=== PATIENT | male | born 1950 | race Caucasian/White ===

== ENCOUNTER 2017-01-08 06:19 | Day surgery (SDC) | payer OTHER ==
--- NOTE | 2017-01-07 10:41 | GHP ---
[f rep st] HISTORY AND PHYSICAL HISTORY OF PRESENT ILLNESS: The patient is a 66-year-old male who comes to our office for the second time to discuss placement of a peritoneal dialysis catheter for dialysis. The patient also has umbilical hernia. 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 He has hypertension. MEDICATIONS: Aspirin, Synthroid, lisinopril, labetalol, allopurinol, simvastatin. PAST MEDICAL HISTORY: Chronic kidney disease, anemia of chronic kidney disease , hypertension, hyperparathyroidism, gout, diabetes. PAST SURGICAL HISTORY: Knee arthroscopic surgery, rotator cuff repair, quadriceps repair, wrist fracture, vasectomy. ALLERGIES: Penicillin. REVIEW OF SYSTEMS: He has a negative 10-point review of systems. PHYSICAL EXAMINATION: GENERAL: The patient is a pleasant male in no apparent distress. HEAD AND NECK: Normocephalic, atraumatic. CHEST: CTA bilaterally. HEART: Regular rhythm and rate. ABDOMEN: Small umbilical hernia present. Abdomen is soft, nontender. EXTREMITIES: No lower extremity edema. IMPRESSION: 66-year-old male with need for peritoneal dialysis catheter placement, umbilical hernia repair. RECOMMENDATIONS: Both procedures were discussed with the patient in detail, including risk of recurrence in regard to the hernia, bowel injury, bleeding, infection, hematoma. Risks discussed with the peritoneal dialysis catheter include infection, dysfunction of catheter, hematoma, nerve injury, bowel injury. The patient elected to proceed with scheduling surgery for January 08, 2017. /[id number]/MODL MTDD
[2017-01-08] MEDS ORDERED: LIDOCAINE 1% 5 ML SDV ONE (07:40)
[2017-01-08] MEDS ORDERED: SKIN ADHESIVE (DERMABOND) 1 EACH TP ONE (07:40)
[2017-01-08] MEDS ORDERED: BUPIVACAINE 0.5% 30 ML SDV ONE (07:41)
[2017-01-08] MEDS ORDERED: CLINDAMYCIN 600 MG/DEXTROSE 50 ML IV ONE (08:00)
[2017-01-08] MEDS ORDERED: ONDANSETRON 4 MG/2 ML VIAL ONE (08:10)
[2017-01-08] MEDS ORDERED: fentaNYL 250 MCG/5 ML INJ ONE (08:10)
[2017-01-08] MEDS ORDERED: PROPOFOL 200 MG/20 ML VIAL ONE (08:10)
[2017-01-08] MEDS ORDERED: DEXAMETHASONE 4 MG/ML VIAL ONE (08:12)
[2017-01-08] MEDS ORDERED: CISATRACURIUM BESYLATE 20 MG/10 ML VIAL IV ONE (08:45)
[2017-01-08] MEDS ORDERED: MIDAZOLAM 2 MG/2 ML VIAL ONE (08:57)
[2017-01-08] MEDS ORDERED: SUGAMMADEX SODIUM 200 MG/2 ML VIAL IVP ONE ×2 (09:40→10:07)
[2017-01-08] MEDS ORDERED: epHEDrine SULFATE 10 MG/ML SYR ONE (09:51)
[2017-01-08] MEDS ORDERED: NEOSTIGMINE METHYLSULFATE 5 MG/5 ML SYR ONE (10:18)
[2017-01-08] MEDS ORDERED: GLYCOPYRROLATE 0.2 MG/1 ML VIAL ONE (10:19)
[2017-01-08] MEDS ORDERED: hydrALAZINE 20 MG/ML VIAL ONE (10:25)
--- NOTE | 2017-01-08 12:20 | GOP ---
[f rep st] OPERATIVE REPORT DATE OF OPERATION: 01/08/2017 SURGEON: Alejandro Prado MD OUTSIDE PRODUCTION INSPECTOR: NOREEN Jurado ANESTHESIOLOGIST: Dr. Styles PREOPERATIVE DIAGNOSIS: Chronic renal failure and umbilical hernia. POSTOPERATIVE DIAGNOSIS: Chronic renal failure and umbilical hernia. PROCEDURE PERFORMED: Open umbilical hernia repair and laparoscopic placement of a peritoneal dialysi s catheter. FINDINGS: The patient was found to have good flow and function of the PD catheter. He was also foun d to have a 1.5 cm umbilical defect. DESCRIPTION OF PROCEDURE: Patient taken to the operating room, where he received a satisfactory gene ral endotracheal anesthesia by Dr. Styles, placed in the supine position, and prepped and draped in th e usual sterile fashion. Infraumbilical incision was made and dissection carried down to the fascia. The umbilical hernia was dissected off the back of the umbilical skin. A Veress needle was inserted through the small umbili khadijah defect. A pneumoperitoneum was established. A 5 mm trocar was introduced. Laparoscope introduc ed. Good visualization was obtained. A second incision was made lateral to the umbilicus on the left side. Dissection extended down to th e rectus sheath. A 10 mm trocar was introduced into the abdomen under direct vision and through that , the PD catheter was passed and placed in the depths of the pelvis. The catheter was secured in hannah ce with 0 Vicryl sutures, securing the anterior rectus sheath over the Dacron pledget and then the en d of the catheter was tunneled out through a separate stab incision in the left lower quadrant. The abdomen was then instilled with 400 cc of saline and 250 cc were eventually returned. Both wounds were closed with 3-0 Vicryl for the subcutaneous tissue, 4-0 Monocryl subcuticular stitch , and they were both infiltrated with 0.5% Marcaine. The wounds were dressed. He tolerated the procedure well, taken to the recovery room in good condition. Blood loss was less t corea 5 cc. No complications. /[id number]/MODL
== END 2017-01-08 12:45 | disposition home or self-care (01) ==
LOC: FSGY 06:19
PROVIDERS: ATTEND Surgery
PROC: 0WQF0ZZ Repair Abdominal Wall, Open Approach (ICD-10-PCS; principal; 2017-01-08 08:00)
PROC: 0WHG43Z Insertion of Infusion Device into Peritoneal Cavity, Percutaneous Endoscopic Approach (ICD-10-PCS; principal; 2017-01-08 08:00)
PROC: 0T9B70Z Drainage of Bladder with Drainage Device, Via Natural or Artificial Opening (ICD-10-PCS; principal; 2017-01-08 08:00)
DX: Z49.02 Encounter for fitting and adjustment of peritoneal dialysis catheter (principal); K42.9 Umbilical hernia without obstruction or gangrene; N18.9 Chronic kidney disease, unspecified; D63.1 Anemia in chronic kidney disease; Q60.0 Renal agenesis, unilateral; M10.9 Gout, unspecified; I10 Essential (primary) hypertension; E21.3 Hyperparathyroidism, unspecified; Z88.0 Allergy status to penicillin; R33.9 Retention of urine, unspecified; K91.89 Other postprocedural complications and disorders of digestive system; Z87.891 Personal history of nicotine dependence; Z85.818 Personal history of malignant neoplasm of other sites of lip, oral cavity, and pharynx; Z79.82 Long term (current) use of aspirin
CPT/HCPCS: C1750; J0360; J1100; J2250; J2405; J2704; J2710; J3010

== ENCOUNTER 2017-01-08 19:47 | Emergency (ER) | payer OTHER ==
--- NOTE | 2017-01-08 20:01 | EDPHY ---
H & P Time Seen by Provider: 01/08/17 20:01 - Personal History Tetanus Vaccine Date: unknown - Medical/Surgical History Hx Asthma: No Hx Chronic Respiratory Disease: No Hx Diabetes: No Hx Cardiac Disease: No Hx Renal Disease: Yes Hx Cirrhosis: No Hx Alcoholism: No Hx HIV/AIDS: No Hx Splenectomy or Spleen Trauma: No Other PMH: Chronic kidney disease, HTN, high cholesterol, left rotator cuff repair, left knee ligament surgery, neck node removal, throat cancer with chemo and radiation, right knee surgery, right wrist surgery - Social History Smoking Status: Former smoker Constitutional: Initial Vital Signs Temperature (C) 36.4 C 01/08/17 20:08 Heart Rate 67 01/08/17 20:08 Respiratory Rate 18 01/08/17 20:08 Blood Pressure 153/88 H 01/08/17 20:08 O2 Sat (%) 97 01/08/17 20:08 O2 Delivery Mode Room Air Allergies/Adverse Reactions: Penicillins Allergy (Severe, Verified 01/08/17 20:10) Swelling/neck,face,throat Home Medications: Medication Instructions Recorded Aspirin [Aspirin 81mg (OTC)] 02/21/13 Bumetanide [Bumex (RX)] 02/21/13 Labetalol HCl [Trandate 200 mg 02/21/13 (RX)] Levothyroxine [Synthroid 125 mcg 02/21/13 (RX)] Lisinopril [Zestril 20 mg (RX)] 02/21/13 Minoxidil [Minoxidil 10 mg (RX)] 02/21/13 Niacin ER [Niaspan 1000 mg (RX)] 02/21/13 Simvastatin [Zocor 20 mg (RX)] 02/21/13 Allopurinol 01/03/17 IRON 01/03/17 Vit D3 & K/Berberine HCl/Hops 01/03/17 Medical Decision Making ED Course/Re-evaluation: CHIEF COMPLAINT: Urinary retention HISTORY OF PRESENT ILLNESS: This patient is a 66 year old male status post- umbilical surgery repair today who presents to the Emergency Department complaining of urinary retention since the procedure. He complains of lower abdominal pain and pressure suggestive of urinary retention. He has no additional concerns. He denies fever or chills, abdominal or bowel complaints. Medical history includes chronic kidney disease. REVIEW OF SYSTEMS: A 10 point review of systems was performed and is negative with the exception of the elements mentioned in the history of present illness. PHYSICAL EXAM: General Appearance: Alert, well hydrated, appropriate, and non-toxic appearing. Head: Atraumatic without scalp tenderness or obvious injury Eyes: Pupils equal, round, reactive to light and accommodation, EOMI, no trauma , no injection. Ears: Clear bilaterally, no perforation, normal landmarks Nose: Atraumatic, no rhinorrhea, clear. Throat: There is no erythema or exudates, no lesions, normal tonsils, mucus membranes moist. Neck: Supple, 2+ carotid upstroke, nontender, no lymphadenopathy. Respiratory: No retractions, no distress, no wheezes, and no accessory muscle use. Lungs are clear to auscultation bilaterally. Cardiovascular: Regular rate and rhythm, no murmurs, rubs, or gallops. Bilateral carotid, radial, dorsalis pedis, and posterior tibial pulses intact. Good capillary refill all extremities. Gastrointestinal: Abdomen is soft, nontender, non-distended, no masses, no rebound, no guarding, no peritoneal signs. Musculoskeletal: Normal active ROM of all extremities, atraumatic. Neurological: Alert, appropriate, and interactive. The patient has normal DTRs and non-focal cranial nerves, motor, sensory, and cerebellar exam. Skin: No rashes, good turgor, no nodules on palpation. Past medical history: CKD. Past surgical history: As above. Family history: Non-contributory. Social history: at bedside. DIFFERENTIAL DIAGNOSIS: Differential diagnosis for the patient's urinary retention includes but is not limited to post-operative urinary retention, exacerbation of chronic kidney disease, or obstruction. MEDICAL DECISION MAKING: This 66 year old male presents with urinary retention following hernia repair by Dr. Prado this morning. Ultrasound at bedside indicates a full bladder confirming suspicion of post-operative urinary retention secondary to anesthesia. I discussed these results with the patient. Hinojosa catheter was established with 800cc urine output upon time of discharge. The patient was discharged home with catheter in place with instructions to follow-up in two days with Dr. Prado. Departure - Departure Disposition: Home, Routine, Self-Care Clinical Impression: Postoperative urinary retention Condition: Good Instructions: Hinojosa Catheter Placement and Care (ED) Additional Instructions: 1. Follow-up with Dr. Prado in 2 days. Keep your Hinojosa catheter in place until that time. 2. Return to the Emergency Department if you experience pain at the cite of your catheter placement, blood or foul discharge in your catheter, fever or chills, or other serious concerns. Referrals: FELIX WILLIAMSON [Primary Care Provider] - As per Instructions Alejandro Prado MD [Medical Doctor] - As per Instructions
[2017-01-08] MEDS ORDERED: LIDOCAINE 2% JELLY 20 ML (UROJECT) ONE (20:12)
[2017-01-08 20:21] VITALS: PULSE 67
[2017-01-08 20:51] VITALS: BP 197/112; RESP 20; TEMP 98.8; O2SAT 94
== END 2017-01-08 20:53 | disposition home or self-care (01) ==
PROC: 0T9B70Z Drainage of Bladder with Drainage Device, Via Natural or Artificial Opening (ICD-10-PCS; principal; 2017-01-08)
DX: R33.9 Retention of urine, unspecified (principal); K91.89 Other postprocedural complications and disorders of digestive system; I10 Essential (primary) hypertension; Z87.891 Personal history of nicotine dependence; Z85.818 Personal history of malignant neoplasm of other sites of lip, oral cavity, and pharynx; Z79.82 Long term (current) use of aspirin

== ENCOUNTER → 2017-01-30 | Outpatient (CLI) | payer OTHER | LOC: FIMAGING 12:19 → EDSTATUS 12:21 | DX: M50.322 Other cervical disc degeneration at C5-C6 level (principal); M43.22 Fusion of spine, cervical region ==

== ENCOUNTER 2018-08-21 00:07 | Observation (INO) | payer OTHER ==
--- NOTE | 2018-08-21 00:32 | EDPHY ---
H & P Stated Complaint: Chest tightness Time Seen by Provider: 08/21/18 00:27 HPI/ROS: Chief Complaint: Chest tightness HPI: 68-year-old male began having chest tightness about 8:10 a.m. This evening. At worst is about a 2/10. He is also having aching in his arms. Does have a history of coronary calcifications, renal failure status post renal transplant 9 months ago. No fevers or chills. Pain is nonexertional. Is currently 1/10. No fevers or chills. No shortness of breath. No cough. No nausea vomiting or diarrhea. Also has a history of hyperlipidemia. ROS: 10 systems were reviewed and were negative except those elements noted in the HPI. PMH: Coronary artery calcifications, end-stage renal disease status post renal transplant, hyperlipidemia Social History: No smoking, occasional alcohol, no recreational drug use Family History: non-contributory Physical Exam: Gen: Awake, Alert, No Distress HEENT: Nose: no rhinorrhea Eyes: PERRLA, EOMI Mouth: Moist mucosa Neck: Supple, no JVD Chest: nontender, lungs clear to auscultation Heart: S1, S2 normal, no murmur Abd: Soft, non-tender, no guarding Back: no CVA tenderness, no midline tenderness Ext: no edema, non-tender Skin: no rash Neuro: CN II-XII intact, Sensation grossly intact, Strength 5/5 in bilateral upper and lower extremities - Personal History Current Tetanus/Diphtheria Vaccine: Yes Current Tetanus Diphtheria and Acellular Pertussis (TDAP): Yes Tetanus Vaccine Date: unknown - Medical/Surgical History Hx Asthma: No Hx Chronic Respiratory Disease: No Hx Diabetes: No Hx Cardiac Disease: No Hx Renal Disease: Yes Hx Cirrhosis: No Hx Alcoholism: Yes Hx HIV/AIDS: No Hx Splenectomy or Spleen Trauma: No Other PMH: Chronic kidney disease, HTN, high cholesterol, left rotator cuff repair, left knee ligament surgery, neck node removal, throat cancer with chemo and radiation, right knee surgery, right wrist surgery - Social History Smoking Status: Former smoker Constitutional: Initial Vital Signs Temperature (C) 36.4 C 08/21/18 00:11 Heart Rate 96 08/21/18 00:11 Respiratory Rate 18 08/21/18 00:11 Blood Pressure 123/91 H 08/21/18 00:11 O2 Sat (%) 94 09/20/18 00:11 O2 Delivery Mode Nasal Cannula O2 (L/minute) 2 Allergies/Adverse Reactions: Penicillins Allergy (Severe, Verified 08/21/18 00:09) Swelling/neck,face,throat levofloxacin [From Levaquin] Allergy (Verified 08/21/18 00:10) Home Medications: Medication Instructions Recorded Allopurinol 08/21/18 Aspirin 81mg (*) 08/21/18 Atorvastatin Calcium 08/21/18 Carvedilol 08/21/18 Glipizide 08/21/18 K Phos 08/21/18 Minoxidil 08/21/18 Mycophenolate Mofetil 08/21/18 Prednisone 08/21/18 Synthroid 08/21/18 Tacrolimus Anhydrous 08/21/18 Medical Decision Making - Diagnostics EKG Interpretation: ECG time 12:21 a.m., atrial fibrillation with a rate of 125, there are ST depressions in V5 and V6 and lead to. Mild elevation in AVR with some morphology that is concerning in V1 and V2. ED Course/Re-evaluation: I have discussed the patient with Dr. Barger, cardiology. He has reviewed the patient's ECG. He does not believe the patient is having a STEMI at this time. Changes are concerning for ischemia. He is requesting 5 mg of metoprolol IV. Admit the patient to the hospitalist for further evaluation likely EMIL and cardioversion in the morning. A at Dr. Barger request I have also discussed with Dr. Cai, cardiology. He will plan on consulting on the patient in the morning. Case discussed with Dr. Gordon, hospitalist. He will admit the patient to his service. Patient after 5 mg of Lopressor is now converted to a sinus rhythm with a rate of 64. Awaiting bed placement. - Data Points Laboratory Results: Laboratory Results 08/21/18 00:28 08/21/18 00:28 08/21/18 08/21/18 08/21/18 00:28 00:28 00:28 WBC 6.77 10^3/uL 10^3/uL (3.80-9.50) RBC 5.23 10^6/uL 10^6/uL (4.40-6.38) Hgb 15.9 g/dL g/dL (13.7-17.5) Hct 47.4 % % (40.0-51.0) MCV 90.6 fL fL (81.5-99.8) MCH 30.4 pg pg (27.9-34.1) MCHC 33.5 g/dL g/dL (32.4-36.7) RDW 13.5 % % (11.5-15.2) Plt Count 191 10^3/uL 10^3/uL (150-400) MPV 10.7 fL fL (8.7-11.7) Neut % (Auto) 67.1 % % (39.3-74.2) Lymph % (Auto) 17.7 % % (15.0-45.0) Sawyer % (Auto) 12.1 % % (4.5-13.0) Eos % (Auto) 1.5 % % (0.6-7.6) Baso % (Auto) 1.2 % % (0.3-1.7) Nucleat RBC Rel Count 0.0 % % (0.0-0.2) Absolute Neuts (auto) 4.54 10^3/uL 10^3/uL (1.70-6.50) Absolute Lymphs (auto) 1.20 10^3/uL 10^3/uL (1.00-3.00) Absolute Monos (auto) 0.82 10^3/uL H 10^3/uL (0.30-0.80) Absolute Eos (auto) 0.10 10^3/uL 10^3/uL (0.03-0.40) Absolute Basos (auto) 0.08 10^3/uL 10^3/uL (0.02-0.10) Absolute Nucleated RBC 0.00 10^3/uL 10^3/uL (0-0.01) Immature Gran % 0.4 % % (0.0-1.1) Immature Gran # 0.03 10^3/uL 10^3/uL (0.00-0.10) Sodium 141 mEq/L mEq/L (135-145) Potassium 4.1 mEq/L mEq/L (3.3-5.0) Chloride 107 mEq/L mEq/L (97-110) Carbon Dioxide 25 mEq/l mEq/l (22-31) Anion Gap 9 mEq/L mEq/L (8-16) BUN 25 mg/dL H mg/dL (7-23) Creatinine 0.9 mg/dL mg/dL (0.7-1.3) Estimated GFR > 60 Glucose 161 mg/dL H mg/dL (70-100) Calcium 10.4 mg/dL mg/dL (8.5-10.4) POC Troponin I 0.04 ng/mL ng/mL (0.00-0.08) Medications Given: Discontinued Medications Aspirin Buffered (Aspirin Ec) 243 mg PO EDNOW ONE Stop: 08/21/18 00:36 Last Admin: 08/21/18 00:43 Dose: 243 mg Metoprolol Tartrate (Lopressor Injection) 5 mg IVP EDNOW ONE Stop: 08/21/18 01:06 Last Admin: 08/21/18 01:05 Dose: 5 mg Point of Care Test Results: Chemistry 08/21/18 00:28 POC Troponin I 0.04 ng/mL ng/mL (0.00-0.08) Departure - Departure Disposition: [facility] Inpatient Acute Clinical Impression: Atrial fibrillation, Chest pain Condition: Fair Referrals: Thea Norton MD [Primary Care Provider] - As per Instructions
[2018-08-21] MEDS ORDERED: ASPIRIN 81 MG CHEWABLE TAB ONE (00:34)
[2018-08-21] MEDS ORDERED: ASPIRIN EC 325 MG TAB PO ONE ×2 (00:35→10:22)
[2018-08-21 00:48] LABS: PLATELET COUNT 191 10^3/uL (150-400)
[2018-08-21] MEDS ORDERED: METOPROLOL TARTRATE 5 MG/5 ML INJ ONE (01:02)
[2018-08-21] MEDS ORDERED: METOPROLOL TARTRATE 5 MG/5 ML INJ IVP ONE (01:05)
[2018-08-21] MEDS ORDERED: ACETAMINOPHEN 325 MG TAB PO PRN (01:36)
[2018-08-21] MEDS ORDERED: ONDANSETRON DISINTEGRATING 4 MG TAB PO PRN (01:36)
[2018-08-21] MEDS ORDERED: ONDANSETRON 4 MG/2 ML VIAL IVP PRN (01:36)
[2018-08-21] MEDS ORDERED: D50W 25 GM/50 ML SYR IVP PRN (01:41)
--- NOTE | 2018-08-21 02:32 | PDGENHP ---
History and Physical - Chief Complaint Chest pain - History of Present Illness 68 yo w/ hx of ESRD s/p renal transplant, DM, and CAD presents with chest pain. Patient experienced some chest tightness this evening that was associated with bilateral arm numbness. He check his vitals and noted that his HR was >100 so he decided to come to the ED. Upon arrival in the ED he was noted to be in AF w / RVR. He received one dose of metoprolol 5 mg IV x1 and converted to sinus rhythm shortly thereafter. At the time of my evaluation patient is comfortable and without complaints. His ECG (while tachycardic) shows signs concerning for ischemia. He has known CAD from a coronary CT but has never had an acute coronary syndrome or cardiac intervention in the past. Case discussed with ED physician Dr. Schofield, records reviewed in EMR and [place]. History Information - Allergies/Home Medication List Allergies/Adverse Reactions: Penicillins Allergy (Severe, Verified 08/21/18 00:09) Swelling/neck,face,throat levofloxacin [From Levaquin] Allergy (Verified 08/21/18 00:10) Home Medications: Allopurinol 08/21/18 [Last Taken Unknown] Aspirin 81mg (*) 08/21/18 [Last Taken Unknown] Atorvastatin Calcium 08/21/18 [Last Taken Unknown] Carvedilol 08/21/18 [Last Taken Unknown] Glipizide 08/21/18 [Last Taken Unknown] K Phos 08/21/18 [Last Taken Unknown] Minoxidil 08/21/18 [Last Taken Unknown] Mycophenolate Mofetil 08/21/18 [Last Taken Unknown] Prednisone 08/21/18 [Last Taken Unknown] Synthroid 08/21/18 [Last Taken Unknown] Tacrolimus Anhydrous 08/21/18 [Last Taken Unknown] I have personally reviewed and updated: family history, medical history - Past Medical History coronary artery disease, diabetes type 2, hypertension Additional medical history: CKD s/p renal transplant - Surgical History Reports: hernia repair Additional surgical history: Renal transplant - Family History Positive for: CAD Additional family history: COPD - Social History Smoking Status: Former smoker Review of Systems Review of Systems: ROS: 10pt was reviewed & negative except for what was stated in HPI & below Physical Exam Physical Exam: Temp Pulse Resp BP Pulse Ox 36.4 C 63 16 109/72 94 08/21/18 02:15 08/21/18 02:15 08/21/18 02:15 08/21/18 02:15 08/21/18 02:15 O2 (L/minute) 2 Constitutional: no apparent distress, not in pain Eyes: PERRL, EOMI Ears, Nose, Mouth, Throat: moist mucous membranes, no oral mucosal ulcers Cardiovascular: regular rate and rhythym, no murmur, rub, or gallop Respiratory: no respiratory distress, clear to auscultation Gastrointestinal: normoactive bowel sounds, soft, non-tender abdomen Skin: warm, normal color Musculoskeletal: full muscle strength, no muscle tenderness Neurologic: AAOx3, CN II-XII Intact Psychiatric: interacting appropriately, not anxious Lab Data & Imaging Review 08/21/18 00:28 08/21/18 00:28 WBC 6.77 10^3/uL (3.80-9.50) 08/21/18 00:28 RBC 5.23 10^6/uL (4.40-6.38) 08/21/18 00:28 Hgb 15.9 g/dL (13.7-17.5) 08/21/18 00:28 Hct 47.4 % (40.0-51.0) 08/21/18 00:28 MCV 90.6 fL (81.5-99.8) 08/21/18 00:28 MCH 30.4 pg (27.9-34.1) 08/21/18 00:28 MCHC 33.5 g/dL (32.4-36.7) 08/21/18 00:28 RDW 13.5 % (11.5-15.2) 08/21/18 00:28 Plt Count 191 10^3/uL (150-400) 08/21/18 00:28 MPV 10.7 fL (8.7-11.7) 08/21/18 00:28 Neut % (Auto) 67.1 % (39.3-74.2) 08/21/18 00:28 Lymph % (Auto) 17.7 % (15.0-45.0) 08/21/18 00:28 [facility] % (Auto) 12.1 % (4.5-13.0) 08/21/18 00:28 Eos % (Auto) 1.5 % (0.6-7.6) 08/21/18 00:28 Baso % (Auto) 1.2 % (0.3-1.7) 08/21/18: Nucleat RBC Rel Count 0.0 % (0.0-0.2) 08/21/18 00: Absolute Neuts (auto) 4.54 10^3/uL (1.70-6.50) 08/21/18 00: Absolute Lymphs (auto) 1.20 10^3/uL (1.00-3.00) 08/21/18: Absolute Monos (auto) 0.82 10^3/uL (0.30-0.80) H 08/21/18: Absolute Eos (auto) 0.10 10^3/uL (0.03-0.40) 08/21/18: Absolute Basos (auto) 0.08 10^3/uL (0.02-0.10) 08/21/18: Absolute Nucleated RBC 0.00 10^3/uL (0-0.01) 08/21/18: Immature Gran % 0.4 % (0.0-1.1) 08/21/18: Immature Gran # 0.03 10^3/uL (0.00-0.10) 08/21/18: Sodium 141 mEq/L (135-145) 08/21/18: Potassium 4.1 mEq/L (3.3-5.0) 08/21/18: Chloride 107 mEq/L (97-110) 08/21/18: Carbon Dioxide 25 mEq/l (22-31) 08/21/18: Anion Gap 9 mEq/L (8-16) 08/21/18: BUN 25 mg/dL (7-23) H 08/21/18: Creatinine 0.9 mg/dL (0.7-1.3) 08/21/18: Estimated GFR > 60 08/21/18: Glucose 161 mg/dL (70-100) H 08/21/18 00: Calcium 10.4 mg/dL (8.5-10.4) 08/21/18: POC Troponin I 0.04 ng/mL (0.00-0.08) 08/21/18 00:28 Visualized and Interpreted EKG results: Yes EKG Interpretation: Positive for: other (AF w/ RVR), ST elevation (Anterior), ST depression (Lateral) Assessment & Plan Assessment: 68 yo M w/ CAD, CKD s/p transplant, DM, and HTN presents with chest pain found to have AF w/ RVR. Plan: 1. Chest pain - Likely related to AF w/ RVR noted on arrival. ECG(personally interpreted) demonstrated sings concerning for ischemia (lateral STD's, anterior BARRINGTON's), which could be interpreted as essentially an abnormal stress test. Cardiology was consulted who did not feel urgent intervention was warranted. The patient is currently chest pain free. - Admit to PCU for observation - Monitor on telemetry, trend cardiac enzymes - Obtain TTE - Cardiology consulted while in ED, as a result I will defer next diagnostic step to their judgement 2. AF w/ RVR - New diagnosis for this patient. He converted back to NSR with metoprolol 5 mg IV x1. He is already on carvedilol for history of CAD. [id number] score of 3 indicates he would benefit from AC. - Monitor on telemetry - TTE as above - Cardiology consult - Discuss AC prior to discharge 3. CAD - Per previous coronary calcium score; no prior ACS or cardiac interventions. - Continue ASA, BB, statin pending reconciliation 4. HTN - Continue home medications 5. CKD - s/p renal transplant; renal function WNL today. - Continue IS regimen (MNa, tacrolimus, prednisone) 6. DM - Will manage with SSI for now Diet - NPO Code - Full Ppx - LMWH Dispo - Admit under observation status
[2018-08-21 04:22] LABS: PLATELET COUNT 173 10^3/uL (150-400)
--- NOTE | 2018-08-21 05:23 | CPEKG ---
Test Reason : OPEN Blood Pressure : / mmHG Vent. Rate : 125 BPM Atrial Rate : 144 BPM P-R Int : 113 ms QRS Dur : 104 ms QT Int : 348 ms P-R-T Axes : 000 -43 129 degrees QTc Int : 502 ms Atrial fibrillation Left anterior fascicular block LVH with secondary repolarization abnormality Anterior Q waves, possibly due to LVH Prolonged QT interval Confirmed by Papo Schofield ([id number]) on 08/21/2018 5:23:00 AM Referred By: Confirmed By:Papo Schofield
--- NOTE | 2018-08-21 05:23 | CPEKG ---
Test Reason : OPEN Blood Pressure : / mmHG Vent. Rate : 065 BPM Atrial Rate : 065 BPM P-R Int : 196 ms QRS Dur : 110 ms QT Int : 412 ms P-R-T Axes : -05 -36 000 degrees QTc Int : 429 ms Sinus rhythm Probable left atrial enlargement LVH with secondary repolarization abnormality Anterior ST elevation, probably due to LVH Confirmed by Papo Schofield ([id number]) on 08/21/2018 5:23:01 AM Referred By: Confirmed By:Papo Schofield
[2018-08-21] MEDS ORDERED: INSULIN DEGLUDEC 20 UNIT SQ SCH (09:00)
[2018-08-21] MEDS: ENOXAPARIN 40 MG/0.4 ML SYR SC SCH (09:32)
[2018-08-21] MEDS: INSULIN LISPRO 100 UNIT/ML SC SCH ×3 (09:32→17:59)
[2018-08-21] MEDS ORDERED: MAGNESIUM SULF 2 GM/WATER 50 ML IV ONE (09:43)
[2018-08-21] MEDS: CARVEDILOL 3.125 MG TAB PO SCH ×2 (09:56→20:49)
[2018-08-21] MEDS: CHOLECALCIFEROL VIT D3 1,000 UNITS TAB PO SCH (09:56)
[2018-08-21] MEDS: ALLOPURINOL 100 MG TAB PO SCH (09:56)
[2018-08-21] MEDS: GLUCOSAMINE SULF 500 MG CAP PO SCH (09:56)
[2018-08-21] MEDS: predniSONE 5 MG TAB PO SCH (09:56)
[2018-08-21] MEDS: TACROLIMUS 1 MG CAP PO SCH ×2 (09:56→20:49)
[2018-08-21] MEDS: MINOXIDIL 2.5 MG TAB PO SCH (09:57)
[2018-08-21] MEDS: LEVOTHYROXINE 175 MCG TAB PO SCH (09:59)
[2018-08-21] MEDS ORDERED: DIAZEPAM 5 MG TAB PO ONE (10:22)
[2018-08-21] MEDS ORDERED: NITROGLYCERIN 0.4 MG BTL SL PRN (10:22)
[2018-08-21] MEDS ORDERED: diphenhydrAMINE 25 MG CAP PO ONE (10:22)
[2018-08-21] MEDS ORDERED: FAMOTIDINE 20 MG TAB PO ONE (10:22)
[2018-08-21] MEDS ORDERED: NS 1,000 ML IV SCH ×2 (10:30→14:45)
--- NOTE | 2018-08-21 10:52 | PDPROPOC ---
Sedation Plan of Care Sedation Plan of Care: vital signs stable, mental status noted, patient educated of risks, benefits, alternatives, patient can tolerate sedation ASA Classification: ASA 3 Mallampati Score: Class 3 Mallampati Reference Image: Patient passed 3-3-2 rule?: Yes
--- NOTE | 2018-08-21 10:53 | PDHPUP ---
History & Physical Update H&P update statement: This history and physical update is based on an assessment of the patient which was completed after admission or registration (within 24 hours), but prior to the surgery/procedure. H&P update: H&P reviewed & patient examined, no change in patient's condition since H&P completed H&P changes: no changes
--- NOTE | 2018-08-21 11:58 | GCON ---
CARDIOLOGY CONSULTATION REFERRING PHYSICIAN: Ady Kilgore MD INDICATION FOR CARDIOLOGY CONSULTATION: Episode of chest pressure, new onset of atrial fibrillation, mildly elevated troponin. HISTORY OF PRESENT ILLNESS: The patient is a 68-year-old male. He is known to our practice. He has significant past history of hypertension, hyperlipidemia, coronary arthrosclerosis based off cardiac calcium scoring, end-stage renal disease, with recent renal transplant 9 months ago, hyperlipidemia, and history of throat cancer. His primary tree doctor is Dr. Alberto Cho. He informs me last evening, as he is getting ready for bed, he did notice some midsternal chest heaviness, followed soon with associated arm pain. Did report some shortness of breath, and mild abdominal bloating. This had concerned him. He did take his blood pressure, and reported noticing a significant elevated heart rate at 150 BPM. He came to the hospital for further evaluation. Upon arrival , electrocardiogram was done, which noted that he was in atrial fibrillation with rapid ventricular response. He was given 1 dose of IV metoprolol 5 mg and converted back to sinus rhythm shortly thereafter. His initial troponin was negative, and he reported chest pressure, arm pain subsided with conversion back to sinus rhythm. He was admitted to the PCU for overnight observation, in which he reports he has had no further episodes of chest pain, and has not noticed any significant palpitations. Unfortunately, he has maintained sinus rhythm, but it was noted at approximately 8:40 this morning, he had an approximately 26-beat run of nonsustained VT with rates appearing to be up to 150 BPM. He was asymptomatic. He did convert back to sinus rhythm. Also noted this morning, he had a mild bump of troponin up at 0.056. At the time of my examination, he reports he continues to have no chest pressure or pain. He states that prior to last night he had been in his normal state of health, reporting no recent fever, chills, night sweats, symptoms of palpitations, lightheadedness, near-syncope, or syncopal event. Reports no orthopnea, PND. Denies any edema. Reports no symptoms suggestive of TIA or CVA. PAST MEDICAL HISTORY: Significant past medical history includes coronary artery disease based off cardiac calcium scoring, type 2 diabetes, hypertension , hypothyroidism history of end-stage kidney disease, with previous transplant. PAST SURGICAL HISTORY: Includes renal transplant 9 months ago at [facility]. He reports he has had left total knee surgery, right knee surgery, and rotator cuff repair on his left. FAMILY HISTORY: Reporting significant family history of coronary artery disease and COPD. 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 He reports he is a former smoker who quit at age 22. He is . Denies any illicit drug use. ALLERGIES: Patient states allergies to penicillin and Levaquin. HOME MEDICATIONS: Include Tresiba insulin 20 units subcu daily, glucosamine 500 mg p.o. daily, vitamin D 1000 units p.o. daily, glyburide 10 mg p.o. b.i.d. , potassium chloride 20 mEq p.o. b.i.d., carvedilol 3.125 mg p.o. b.i.d., atorvastatin 40 mg p.o. h.s., aspirin 81 mg p.o. h.s., allopurinol 100 mg p.o. daily, prednisone 5 mg p.o. daily, mycophenolic acid 720 mg p.o. b.i.d., minoxidil 2.5 mg p.o. daily, Synthroid 175 mcg p.o. daily, Prograf 2 mg p.o. b.i.d. REVIEW OF SYSTEMS: A 10-point review of systems done on patient. All negative except as mentioned above. PHYSICAL EXAMINATION: GENERAL APPEARANCE: Medium built, well-groomed male. He is alert and oriented to person, place, time, and situation. Appears to be under no acute distress at this time. VITAL SIGNS: Current vital signs are blood pressure of 129/73; heart rate of 60, sinus rhythm on the monitor currently; respirations 15; saturating 92% on room air; temperature 36.5 degrees Celsius. HEENT: Head is normocephalic. Lips and tongue are pink and moist with no signs of cyanosis. Conjunctivae pink. NECK: Trachea is midline. +2 carotid pulses bilateral. No auscultated bruits. No jugular vein distention. RESPIRATORY: Lungs are clear to auscultation. No rhonchi, rales, or wheezes. No accessory muscle use. No intercostal muscle retraction noted. CARDIAC: Regular rate, regular rhythm. S1, S2. 2/6 systolic murmur noted along the sternal border. ABDOMEN: Soft, nontender. Bowel sounds x4 quadrants. No organomegaly. No palpable masses. SKIN: [place], warm, dry. No cyanosis. No clubbing. Trace peripheral edema, bilateral lower extremities. VASCULAR: +2 carotids bilateral, +2 radials bilateral, +2 dorsal pedal and posterior tibial pulses bilateral. LABORATORY STUDIES: Laboratory studies drawn today show WBC of 6.40, hemoglobin of 14.1, hematocrit of 42.7, platelet count 173. Sodium 141, potassium 4.1, chloride 109, CO2 29, BUN 26, creatinine 0.9, glucose 82, calcium 10.1. Magnesium noted to be 1.6. Troponin of 0.056 this morning. Noted on admission, troponin was 0.04. STUDIES: Initial electrocardiogram on admission showing atrial fibrillation with rapid ventricular response, left anterior leftward axis, with nonspecific T -wave in intervals, potential LVH. Chest x-ray showed mild cardiomegaly with arthrosclerotic aorta. No pneumo or pulmonary edema. No pneumothorax. Electrocardiogram this morning showing sinus rhythm , left axis deviation, poor R-wave progression in precordial leads, noting with possible LVH, with biphasic T-waves in lateral leads and inverted T-waves and ST depression in lead II. ASSESSMENT AND PLAN: 1. Chest pressure: Patient reporting episode of chest pressure with atrial fibrillation last evening. Was associated with some shortness of breath, abdomen bloating, and arm pain. Symptoms did subside once he returned back into sinus rhythm. He is noted to have mildly elevated troponin this morning, he was also noted to have abnormal electrocardiogram and a significantly long run of nonsustained ventricular tachycardia. Concerning with his multiple cardiac risk factors (age, sex, hypertension, hyperlipidemia, diabetes). Concern is for possible cardiac ischemia. After discussing with Dr. Barger, it was felt best that the patient be further evaluated for ischemia by undergoing coronary angiogram. There are concerns with this procedure, especially with his past history of recent renal transplant. This was talked with Dr. Mendez of [facility] (his primary track liner operator is Dr. De León), who did express that there is a potential risk of renal failure with the patient's past history , but felt the patient was in [id number] risk. Her recommendation is patient be well hydrated before procedure. This was discussed with the patient , and he verbalizes understanding and is wanting to proceed. Also risks of cardiac catheterizations were explained to the patient. He also verbalized understanding and wanting to proceed. He has been started on hydration fluid of normal saline at 250 mL/hour, with goal of getting 1 L in prior to procedure and will plan on hydrating post procedure. He has not been on aspirin. He will continue on home dose of carvedilol. Further recommendations come post cardiac catheterization. 2. Nonsustained ventricular tachycardia: Noted this morning , significantly long run. The patient's laboratories this morning are showing a potassium level of 4.1, with low magnesium of 1.6. Supplemental dosing has been ordered. 3. Paroxysmal atrial fibrillation: Patient reporting this is his 1st event. He has a significant CHADS-VASc score of 4. He has self converted back to sinus rhythm, continue on current dose of carvedilol. May consider increasing dosage after cardiac catheterization. Will hold off on anticoagulation due to pending cardiac catheterization, but discussion with patient at discharge to decide on to start on oral anticoagulation. Will order a TSH level this morning. 4. Hypertension: Currently his blood pressure is within normal limits. No changes to his carvedilol dosage at this time. 5. Diabetes: Defer to hospitalist services for management. 6. Hyperlipidemia: Patient is currently on atorvastatin, I will add a fasting lipid panel onto laboratory studies this morning for evaluation of therapy. 7. Coronary artery disease: Planning to start patient on cardiac catheterization, continue patient on aspirin therapy, secondary risk prevention with atorvastatin. 8. History of end-stage renal failure with history of transplant: Laboratory studies today showing BUN 26, creatinine of 0.9. I have discussed with Dr. Mendez about the patient getting contrast due to cardiac catheterization. Hydration as mentioned above. Will monitor renal function closely. The patient has been resumed on transplant medications by hospitalist services. Thank you for this consultation. We will be glad to follow along with you. /[id number]/MODL MTDD
--- NOTE | 2018-08-21 12:03 | ASMTCASEMG ---
Living Arrangements What is your living Answers: Alone arrangement? Who do you live with? Type Of Residence What kind of residence do Answers: House you live in? Discharge Plan Comments Coordination Status Comments Notes: Pts case discussed in tx rounds. Pt is a 68 y/o man admitted for chest pain an afib w/ rvr. Pt is currently out of afib. Pt will go to the labor relations teacher w/ Dr. Barger. Transitional care is following this case. Pt will most likely d/c independent when medically stable. No therapies ordered at this time. CM available for changes. Plan: Independent Date Signed: 08/21/2018 12:03 PM Electronically Signed By:SUHAIL Lopez
[2018-08-21] MEDS ORDERED: IOPAMIDOL (ISOVUE-370) 150 ML BTL IV ONE (13:19)
[2018-08-21] MEDS ORDERED: LIDOCAINE 1% 300 MG/30 ML SDV ONE (13:19)
[2018-08-21] MEDS ORDERED: fentaNYL 100 MCG/2 ML INJ ONE (13:19)
[2018-08-21] MEDS ORDERED: MIDAZOLAM 2 MG/2 ML VIAL ONE ×2 (13:19)
[2018-08-21] MEDS ORDERED: ATROPINE SULFATE 1 MG/10 ML SYR IVP PRN (14:14)
--- NOTE | 2018-08-21 14:42 | HOSPPROG ---
Hospitalist Progress Note Assessment/Plan: 68 yo M w/ CAD, CKD s/p transplant, DM, and HTN presents with chest pain found to have AF w/ RVR. Plan: # Chest pain - has now resolved but with run of WCT, ECG changes with STD and [place] and bumped trop taken for cath today, no flow limiting disease found on heart cath today. Discussed with cardiology, will monitor overnight post cath given ongoing sxs # a fib w/rvr: converted to SR post IV metop, continued on carvedilol and monitoring on tele, does have a [id number] of 4 so would benefit from AC, cardiology notes to discuss post cath # CAD: no prior intervention, no flow limiting disease on cath today, continue asa, statin, BB # CDK: s/p renal transplant, will need IVF post cardiac cath performed today, will need monitoring of renal function post dye load # DM: SSI # HTN: continued on home meds # hypothyroid: with fairly suppressed TSH, will check FT4 to be sure he is not on too much LT4 # IP status, will need > 48 hours stay for eval/mgmt of above Patient new to my care. Old records reviewed and summarized as above. Care plan reviewed with cardiology. Subjective: no acute overnight events, patient notes he is overall feeling better than yesterday but still doesn't feel great Objective: Vital Signs Temp Pulse Resp BP Pulse Ox 36.5 C 60 15 129/73 H 92 08/21/18 07:36 08/21/18 07:36 08/21/18 07:36 08/21/18 07:36 08/21/18 07:36 Laboratory Results 08/21/18 04:00 08/21/18 04:00 08/20/18 08/21/18 08/22/18 05:59 05:59 05:59 Intake Total 1000 Balance 1000 PT REJ 08/21/18 12:00 INR TNP 08/21/18 12:00 Constitutional: no apparent distress, not in pain Eyes: PERRL, EOMI Ears, Nose, Mouth, Throat: moist mucous membranes, no oral mucosal ulcers Cardiovascular: regular rate and rhythym, no murmur, rub, or gallop Respiratory: no respiratory distress, clear to auscultation Gastrointestinal: normoactive bowel sounds, soft, non-tender abdomen Skin: warm, normal color Musculoskeletal: full muscle strength, no muscle tenderness Neurologic: AAOx3, CN II-XII Intact Psychiatric: interacting appropriately, not anxious ICD10 Worksheet Patient Problems: Problems Problem Status Onset Atrial fibrillation Acute Chest pain Acute Chronic renal failure syndrome Active Diabetes mellitus type 2 Active
--- NOTE | 2018-08-21 16:19 | CPIP ---
DATE OF PROCEDURE: 08/21/2018 PROCEDURE PERFORMED: 1. Left heart catheterization. 2. Selective coronary angiography. 3. Angio-Seal arteriotomy repair right groin approach. COMPLICATIONS: None. CONSUMER LENDER: Rad Barger MD INDICATION FOR THE PROCEDURE: Elevated troponin and abnormal EKG in a patient with new-onset atrial fibrillation as well as a run of wide complex tachycardia on the floor and chest tightness and pressu re occurring at rest with atrial fibrillation in place consistent with CCS class IV symptoms of angin a on medical management. PROCEDURE IN DETAIL: After informed consent was obtained, n.p.o. status was confirmed, the region of the right groin was cleaned, prepped, and draped in sterile fashion. A micropuncture set was used t o gain access to the right common femoral artery. Patient then underwent the previously mentioned di agnostic procedure with use of JL4 and R4 curved coronary catheters. Standard wire exchange techniqu e was utilized for all catheter exchanges. The left main coronary lumen is approximately 8 mm in size and bifurcates into an LAD and circumflex system. The LAD arises in its usual location approximately 4 mm in size. At the level of a diagonal and septal branch takeoff, there is a 40% complex atheroma with pre-stenosis dilation of the LAD. T he LAD thereafter courses the anterior apex without flow-limiting obstruction, dissection, or thrombu s. There is evidence of JERSEY-3 and normal flow. The circumflex vessel is 4.5 mm in size and has an early obtuse marginal branch, which is a functional ramus vessel approximately 2 mm in size. There i s no evidence of flow-limiting obstruction. The left circumflex is dominant giving rise to 2 other o btuse marginal branches and terminates as a posterior descending artery distally. There are luminal irregularities in the left coronary system consistent with underlying atherosclerosis. Maximal lumin al stenosis is in the proximal LAD and is estimated to be 30% to 40%. The right coronary artery is n on-dominant and approximately 2 mm in size. There is a lesion in the proximal segment of approximate ly 40% just above the level of the RV branch takeoff. There is no evidence of flow-limiting obstruct ion and there is normal and JERSEY-3 flow to the distal vessel. The JR4 was used to cross the aortic valve and left heart catheterization pressures were obtained. T he LVEDP was measured at 23 mmHg, which is elevated. SUMMARY OF FINDINGS: [place] vessel coronary disease without evidence of flow-limiting obstruction. A cause for the patient's chest pain or troponin elevation is not identified on the basis of angiogra phy. This is most likely demand ischemia related to atrial fibrillation and rapid ventricular respon se as opposed to a true acute coronary syndrome even though the patient did have chest tightness at r est. The patient appears to be a good candidate for medical management and should be treated to achi ivette an LDL cholesterol less than 70, non-HDL cholesterol of less than 100, which is the total minus t he HDL in mg/dL. Copy requested to: [facility] /[id number]/MODL
--- NOTE | 2018-08-21 16:39 | ECHO ---
[email or web address] [address] [address] Main: [phone] Fax: [email or web address] Echocardiogram Name: YOKO REYNA MR#: [id number] Study Date: 08/21/2018 Study Time: 08:14 AM Date of : 1950 Age: 68 year(s) Height: 170.2 cm (67 in.) Weight: 79.38 kg (175 lb.) BSA: 1.91 m2 Gender: Male Examination: Echo Indication: New onset A-fib, now resolved Image Quality: Contrast: Requested by: Ryan Acuna BP: 129 mmHg/73 mmHg Heart Rate: Rhythm: Normal sinus rhythm Indication: New onset A-fib, now resolved Procedure Staff Fisheries Technician: Oneil Nugent RDCS Reading Physician: Rad Barger MD Requesting Provider: Conclusions: Normal size left ventricle. Mild concentric LV hypertrophy. Normal global systolic LV function. No regional wall motion abnormality. Diastolic dysfunction is present. . Normal size right ventricle. The left atrium is mildly dilated. The right atrium is normal in size. Mild mitral valve leaflet calcification is present. Mild mitral valve regurgitation is present. Minimal aortic cusp calcification is noted. Mild aortic valve regurgitation is present. The tricuspid valve is normal in appearance and function. There is no significant tricuspid valve regurgitation. The pulmonic valve is normal in appearance and function. The aorta is normal. No pericardial effusion. The patient has milc concentric LVH and diastolic dysfunction without significant valvular heart disease. He appears to have non valvular atrial fibrillaiton. Angio today negative for flow limiting disease and the TSH is lower than the low end cut off which may indicate mild hyperthyroidism. Measurements: Chambers Valvular Assessment AV/MV Valvular Assessment TV/PV Normal Normal Normal Name Value Range Name Value Range Name Value Range Ao Magy (MM): 3.3 cm (2.2 cm-3.7 AV Vmax: 1.26 m/s (1 m/s-1.7 PV Vmax: 0.68 m/s (0.6 m/s-0.9 cm) m/s) m/s) IVSd (2D): 1.4 cm (0.6 cm-1.1 AV maxP mmHg ( - ) PV PGmax: 2 mmHg ( - ) cm) Patient: YOKO REYNA Study Date: 08/21/2018 Page 1 of 2 08:14 AM LVDd (2D): 4.4 cm (4.2 cm-5.9 LVOT Vmax: 0.78 m/s (0.7 m/s-1.1 cm) m/s) LVDs (2D): 2.7 cm (2.1 cm-4 AR (PHT): 791 ms ( - ) cm) MV E Vmax: 0.57 m/s ( - ) LVPWd (2D): 1.3 cm (0.6 cm-1 MV A Vmax: 0.80 m/s ( - ) cm) MV E/A: 0.71 ( - ) LVEF (2D): 68 (>=54 %) Continued Measurements: Chambers Valvular Assessment AV/MV Name Value Name Value LADs Lon.2 cm MV E' Septal: 0.02 m/s LA Area: 22.4 cm2 MV E/E' Septal: 25.40 LA Volume: 57 ml MV E/E' Lateral: 18.20 LA Volume Index: 29.8 ml/m2 AR Vmax: 3.05 cm/s Findings: Left Ventricle: Normal size left ventricle. Mild concentric LV hypertrophy. Normal global systolic LV function. EF is 68 %. No regional wall motion abnormality. Diastolic dysfunction is present. . Right Ventricle: Normal size right ventricle. Left Atrium: The left atrium is mildly dilated. Right Atrium: The right atrium is normal in size. Mitral Valve: Mild mitral valve leaflet calcification is present. Mild mitral valve regurgitation is present. Aortic Valve: Minimal aortic cusp calcification is noted. Mild aortic valve regurgitation is present. Tricuspid Valve: The tricuspid valve is normal in appearance and function. There is no significant tricuspid valve regurgitation. Pulmonic Valve: The pulmonic valve is normal in appearance and function. Aorta: The aorta is normal. Pericardium: No pericardial effusion. (No Signature Object) Patient: YOKO REYNA Study Date: 08/21/2018 Page 2 of 2 08:14 AM [id number]
[2018-08-21] MEDS: MYCOPHENOLATE SODIUM 180 MG TAB.DR PO SCH (20:49)
[2018-08-21] MEDS ORDERED: ATORVASTATIN CALCIUM 40 MG TAB PO SCH (21:00)
[2018-08-21] MEDS ORDERED: ASPIRIN 81 MG CHEWABLE TAB PO SCH (21:00)
[2018-08-22] MEDS: LEVOTHYROXINE 175 MCG TAB PO SCH (06:22)
[2018-08-22] MEDS: CARVEDILOL 3.125 MG TAB PO SCH (08:05)
[2018-08-22] MEDS: MYCOPHENOLATE SODIUM 180 MG TAB.DR PO SCH (08:05)
[2018-08-22] MEDS: CHOLECALCIFEROL VIT D3 1,000 UNITS TAB PO SCH (08:05)
[2018-08-22] MEDS: ALLOPURINOL 100 MG TAB PO SCH (08:05)
[2018-08-22] MEDS: MINOXIDIL 2.5 MG TAB PO SCH (08:05)
[2018-08-22] MEDS: GLUCOSAMINE SULF 500 MG CAP PO SCH (08:05)
[2018-08-22] MEDS: predniSONE 5 MG TAB PO SCH (08:05)
[2018-08-22] MEDS: TACROLIMUS 1 MG CAP PO SCH (08:05)
[2018-08-22] MEDS: INSULIN LISPRO 100 UNIT/ML SC SCH ×2 (08:06→12:22)
[2018-08-22] MEDS: ENOXAPARIN 40 MG/0.4 ML SYR SC SCH (08:11)
[2018-08-22] MEDS ORDERED: MAGNESIUM SULF 1 GM/DEXTROSE 100 ML IV ONE (08:59)
[2018-08-22] MEDS ORDERED: APIXABAN 5 MG TAB PO SCH (12:00)
[2018-08-22 12:14] VITALS: BP 166/90
--- NOTE | 2018-08-22 12:38 | GDS ---
PROCEDURES: Coronary angiogram by Dr. Barger which showed no flow-limiting coronary artery disease. DIAGNOSES: 1. Chest pain. 2. History of coronary artery disease based on calcium score. 3. Atrial fibrillation with rapid ventricular response. 4. Chronic kidney disease status post renal transplant. 5. Diabetes mellitus on insulin. 6. Hypertension. 7. Hypothyroid. 8. Nonsustained ventricular tachycardia. HOSPITAL COURSE: This is a 68-year-old man who presented with chest pain. He was found to be in Paula b with RVR. This converted to sinus rhythm after IV metoprolol in the emergency department. He had some ST changes when he was in rapid ventricular response, as well as chest pain. He also had a run of nonsustained ventricular tachycardia and an indeterminate troponin. Because of this, he was taken to the laborer pipelines which found no flow-limiting coronary artery disease. Because of the above findings , as well as a CHADS-Vasc of 4, recommend Eliquis. He should hold his aspirin while start Eliquis. Otherwise, he will continue his Coreg. He has a history of a renal transplant. He will follow up with Dr. De León. I have made no changes to his anti-rejection medications. FOLLOWUP: 1. Dr. De León as above. 2. Tito Kee on September 03 for a post catheterization followup. Consider an event monitor t o monitor for additional atrial fibrillation. /[id number]/MODL
--- NOTE | 2018-08-22 12:53 | PDCARPN ---
Cardiology Progress Note Chief Complaint: Patient would like to go home. Assessment/Plan: Assessment: 68-year-old male with significant past history of hypertension, hyperlipidemia, coronary artery arthrosclerosis based off cardiac calcium scoring, end-stage renal disease with recent renal transplant 9 months ago, hyperlipidemia, history of throat cancer. Admitted 08/21/2018 for complaint chest pressure with radiation into arms. Noted to be in AFib with RVR. Self converted after 5 mg of metoprolol IV were given in the ED. Noted yesterday to have a 26 beat run of nonsustained VT in which she was asymptomatic. Noted at time of in SVT of having a Mag level of 1.6. Echocardiogram done yesterday morning showing normal LV size, mild concentric LVH, normal LV systolic function with no regional wall motion abnormalities. LA was mildly dilated. Mild MR, mild AI. Patient was noted to have mild elevated troponin, coronary catheterization was performed by Dr. Barger. Noting non flow limiting CAD. 08/22/2018: Today he reports no further episodes of chest pain or pressure. On continuous cardiac monitoring he has maintained sinus rhythm with no atrial fibrillation, no further runs of nonsustained VT, no malignant arrhythmias or pauses. Labs today noting potassium at 4.0, magnesium 1.8, chloride 111, BUN 21 , creatinine 0.8, glucose 105. TSH noted be low at 0.370, but free T4 1.7 yesterday. Reports no shortness of breath, has been up and walking the unit without difficulties. 1. Paroxysmal atrial fibrillation: Patient's 1st reported events. No further runs since hospitalization. Will continue on current on home dose of carvedilol, due to his Denis resting heart rate, feel that we cannot further titrated at this time. Will have our office set up a 30 day monitor to evaluate for possible AFib burden. With significant chads Vasc score of 4, have recommended that patient be fully anticoagulated. We have discussed risks and benefits of both warfarin and NOAC. He has chosen to start Eliquis. This will place him on 5 mg p.o. Twice daily (weight is greater than 60, ages less 80 , creatinine less than 1.5). We have discussed risks and benefits of full anticoagulation, verbalizes understanding is wanting proceed. 2. Chest pain/elevated troponin: Coronary catheterization showing no flow limiting disease. More likely elevated troponin was due to flow demand due to tachyarrhythmia with AFib. 3. The non sustained VT: No further episodes noted since initial event. Patient was asymptomatic. Potassium within normal limits, magnesium 1.8 today, magnesium supplement ordered.. Cardiac catheterization showing no flow limiting disease. Continue on home dose beta-benjamin carvedilol. 30 day monitor planned as outpatient. 4. CAD: Non flow limiting based off cardiac catheterization, due to him starting Eliquis, will hold aspirin at this time. He is on secondary risk prevention with atorvastatin. 5. History of end-stage renal disease with recent transplant: BUN creatinine 0.8 after cardiac catheterization today. Did discussed with Dr. [facility]. He will continue following up with [facility] as planned. 6. Diabetes: Defer treatment to hospitalist service. 7. Hyperlipidemia: Patient is on atorvastatin. From cardiac standpoint, patient can be discharged home today. Will plan on him following up with myself September 03 in our [place] office. Also our office will make plans for him to get a 30 day monitor, which should be should to his house in the next 5 days. 08/22/18 12:52 Subjective: Patient denies of any chest pressure or pain. Reports no episodes of palpitations. Denies of any lightheadedness, orthopnea, PND, near-syncope or syncopal events. Reports no shortness of breath. Reviewed/Discussed With: hospitalist (Dr Fallon), other (Dr Barger) Objective: Vital Signs (8 Hrs) Temp Pulse Resp BP Pulse Ox 08/22/18 12:00 36.4 C 59 L 16 166/90 H 98 08/22/18 07:53 36.3 C 57 L 14 153/67 H 99 Intake/Output (24 Hrs) 08/21/18 08/22/18 08/23/18 05:59 05:59 05:59 Intake Total 1000 1815 Balance 1000 1815 Intake: Oral (ml) 600 IV Intake (ml) 0 1100 IV Infused (ml) 1000 115 Ns 1,000 ml @ 100 mls/hr 115 IV CONT DEMARIO Rx#: [id number] Other: Weight 79.9 kg Intake Quantity Yes Sufficient Number of Voids Toilet 1 2 Result Diagrams: 08/21/18 04:00 08/22/18 03:50 Cardiac Labs: Cardiac Lab Results (72 Hrs) 08/21/18 04:00 Troponin I 0.056 H - Physical Exam Constitutional: WDWN, no apparent distress Ears, Nose, Mouth, Throat: moist mucous membranes Cardiovascular: regular rate and rhythm, no murmurs, pulses symmetric bilat, No jugular vein distention, No carotid bruit Peripheral Pulses: 1+: dorsalis-pedis (R), dorsalis-pedis (L), 2+: carotid (R), carotid (L) Respiratory: clear to auscultate bilat, no crackles, no wheezes Gastrointestinal: normoactive bowel sounds, no tenderness, no masses Skin: no rashes, warm, no edema, other (Right groin site, catheter insertion site, with no redness, swelling, drainage, ecchymosis, or hematoma.) Neurologic: AAOx3 Psychiatric: cooperative, interactive, following commands ICD10 Worksheet Patient Problems: Problems Problem Status Onset Diabetes mellitus type 2 Active Chronic renal failure syndrome Active Atrial fibrillation Acute Chest pain Acute
--- NOTE | 2018-08-22 15:34 | ASDISCHSUM ---
Discharge Information Plan Status:Home with No Needs Medically Cleared to Leave:08/22/2018 Discharge Date:08/22/2018 01:18 PM CM D/C Disposition:Home, Routine, Self-Care ADT D/C Disposition:Home, Routine, Self-Care Projected Discharge Date:08/22/2018 01:18 PM Transportation at D/C: Discharge Delay Reason: Follow-Up Date:08/22/2018 01:18 PM Discharge Slot: Final Diagnosis: Placement Information Patient Contact Information Contact Name:MADHAVI Relationship:Gregg Address: City: [facility] Phone: [facility]/[employer] Code: Email: Financial Information Financial Class:Medicare Primary Plan Desc:MEDICARE OUTPATIENT Primary Plan Number:[id number] Secondary Plan Desc:ABHIJIT SCOTTY PPO Secondary Plan Number:[id number] Assessment Information LACE LACE Length of stay for Answers: 1 day current admission Acuity / Level of Answers: No Care: Did the patient have an inpatient admission? Comorbidities - select Answers: Coronary Artery Disease all that apply Diabetes (uncontrolled or controlled) Moderate or severe liver or renal disease Other Notes: HLD; HTN # of Emergency department Answers: 1-2 visits in the last 6 months Score: 10 Date Signed: 08/22/2018 03:21 PM Electronically Signed By:Patricia Vu RN [facility] Initial CM Assessment Living Arrangements What is your living Answers: Alone arrangement? Who do you live with? Type Of Residence What kind of residence do Answers: House you live in? Discharge Plan Comments Coordination Status Comments Notes: Pts case discussed in tx rounds. Pt is a 68 y/o man admitted for chest pain an afib w/ rvr. Pt is currently out of afib. Pt will go to the cathodic protection technician w/ Dr. Barger. Transitional care is following this case. Pt will most likely d/c independent when medically stable. No therapies ordered at this time. CM available for changes. Plan: Independent Date Signed: 08/21/2018 12:03 PM Electronically Signed By:SUHAIL Lopez Case Management Discharge Plan Note Case Management Discharge Discharge Order Complete? Answers: Yes Patient to Obtain Answers: Independently Medications Discharge Comments Notes: 08/22/2018 Case Management Note Pt discharged independent with follow up as directed. Date Signed: 08/22/2018 03:22 PM Electronically Signed By:Patricia Vu RN Intervention Information Intervention Type:*MARIO-Signed Date of Service:08/21/2018 10:47 AM Patient Type:Observation Staff Member:Teresa Vela Hours: Discipline: Severity: Comment:
== END 2018-08-22 13:18 | disposition home or self-care (01) ==
LOC: F2W 02:09
PROVIDERS: ADMIT Student in an Organized Health Care Education/Training Program; ATTEND Student in an Organized Health Care Education/Training Program
DX: I48.0 Paroxysmal atrial fibrillation (principal); R07.9 Chest pain, unspecified; I47.2 Ventricular tachycardia; I25.10 Atherosclerotic heart disease of native coronary artery without angina pectoris; R94.31 Abnormal electrocardiogram [ECG] [EKG]; R79.89 Other specified abnormal findings of blood chemistry; N18.6 End stage renal disease; I12.0 Hypertensive chronic kidney disease with stage 5 chronic kidney disease or end stage renal disease; E11.22 Type 2 diabetes mellitus with diabetic chronic kidney disease; E03.9 Hypothyroidism, unspecified; E78.5 Hyperlipidemia, unspecified; J44.9 Chronic obstructive pulmonary disease, unspecified; Z79.4 Long term (current) use of insulin; Z85.818 Personal history of malignant neoplasm of other sites of lip, oral cavity, and pharynx; Z87.891 Personal history of nicotine dependence; Z82.49 Family history of ischemic heart disease and other diseases of the circulatory system; Z88.0 Allergy status to penicillin; Z94.0 Kidney transplant status
CPT/HCPCS: 71045; 93005; 93306; 93458; 96372; 96374; 96375; 96376; 99285; C1760; G0378; J1644; J1650; J1815; J2250; J3010; J3475; J7507; J7512; Q9967; 84484-PO